=== PATIENT | female | born 1970 | race Caucasian/White ===

== ENCOUNTER 2021-05-22 08:31 | Day surgery (SDC) | payer OTHER ==
[~2021-05-22 08:31] MED LIST: Midazolam 1 MG/ML 2 ML SDV ONE; Propofol 200 MG/20 ML SDV ONE; fentaNYL 100 MCG/2 ML SDV ONE
[2021-05-22] MEDS: Sodium Chloride 0.9% 1,000 ML IV SCH (09:07)
--- NOTE | 2021-05-22 13:43 | OR ---
DATE OF PROCEDURE: 05/22/2021 SURGEON: Elie Hart MD PREOPERATIVE DIAGNOSIS: Positive Cologuard. POSTOPERATIVE DIAGNOSIS: Positive Cologuard. PROCEDURE: Colonoscopy. FINDINGS: Normal colonoscopy. RISKS: Risks, benefits, alternatives, and limitations including, but not limited to infection; bleeding; perforation; false positives; false negatives were explained to the patient. They wished to proceed. PROCEDURE IN DETAIL: The patient was placed in left lateral decubitus position. Digital rectal exam was performed without abnormality. The scope was introduced and advanced atraumatically to the ileocecal valve. A photo was taken of appendiceal orifice. The scope was brought back to the ascending, transverse, descending colon, and retroflexed. No evidence of old or new blood. No masses. No polyps. No diverticulosis. No abnormalities on retroflexion. Greater than 8 minutes was spent removing the scope. Prep was acceptable. Approximately 90% luminal surface could be seen. The patient tolerated the procedure well. Elie Hart MD /[id number]
== END 2021-05-22 11:35 | disposition home or self-care (01) ==
LOC: JP.SDS 08:31
PROVIDERS: ATTEND Surgery
DX: R19.5 Other fecal abnormalities (principal); I10 Essential (primary) hypertension; E11.9 Type 2 diabetes mellitus without complications
CPT/HCPCS: J2250; J2704; J3010; J7030